=== PATIENT | male | born 1965 | race African-American/Black ===

== ENCOUNTER 2020-12-16 12:42 | Inpatient (IN) ==
[2020-12-16 16:58] LABS: Bilirubin,Urine Small mg/dL (Negative); Blood, Urine Negative (Negative); Glucose,Urine (UA) Negative (Negative); Hyaline Casts,Urine 36 /LPF (0-3); Ketones,Urine 5 mg/dL (Negative); Mucus,Urine Many /LPF (Occasional); Nitrite,Urine Negative (Negative); Protein,Urine 100 MG/DL; RBC,Urine 3 /HPF (0-4); Urine Appearance Slightly Hazy (Clear); Urine Color Amber (Yellow); Urine Specific Gravity 1.045 (1.001-1.035)
[2020-12-16 17:06] LABS: Basophils % 0.3 % (0.0-0.8); Hematocrit 50.5 VOL% (42.0-52.0); Hemoglobin 16.4 GM/DL (14.0-18.0); Immature Granulocytes % 0.5 %; Immature Granulocytes Absolute 0.07 #; Lymphocytes # 1.1 10*3/uL (1.4-4.0); Lymphocytes % 7.5 % (21.2-54.2); Mean Corpuscular HGB Conc 32.5 GM/DL (32-36); Mean Corpuscular Volume 81.6 FL (87-102); Mean Platelet Volume 10.1 FL (9.6-12.0); Monocytes % 6.2 % (1.7-12.7); Neutrophils % 85.5 % (38.7-73.9); Platelet Count 269 T/CUMM (130-400); Red Blood Count 6.19 MC/CUMM (3.8-5.5); Red Cell Distribution Width 15.6 % (9.3-17.3); White Blood Count 15.2 T/CUMM (4-12)
[2020-12-16 17:29] LABS: Albumin 4.2 G/DL (3.4-5.0); Bilirubin,Total 1.4 MG/DL (0.2-1.0); Potassium 4.4 MMOL/L (3.5-5.1); Total Protein 9.4 G/DL (6.4-8.2)
[2020-12-16] MEDS ORDERED: SODIUM CHLORIDE 0.9% 1,000 ML IV STA (18:32)
[2020-12-16] MEDS ORDERED: ONDANSETRON 4 MG/2 ML VIAL IV STA (18:32)
[2020-12-16] MEDS ORDERED: PANTOPRAZOLE 40 MG VIAL IV STA (18:32)
[2020-12-16] MEDS ORDERED: METOCLOPRAMIDE 10 MG/2 ML VIAL IV STA (18:32)
[2020-12-16] MEDS ORDERED: MORPHINE 4 MG/1 ML VIAL IV STA (18:35)
[2020-12-16] MEDS ORDERED: ACETAMINOPHEN 325 MG TABLET PO PRN (19:06)
[2020-12-16] MEDS: LACTATED RINGERS 1,000 ML IV SCH (21:51)
[2020-12-16] MEDS: PIPERACILLIN/TAZOBACTAM 3,375 MG in SODIUM CHLORIDE 0.9% 100 ML IV SCH (21:53)
[2020-12-17] MEDS: PIPERACILLIN/TAZOBACTAM 3,375 MG in SODIUM CHLORIDE 0.9% 100 ML IV SCH ×3 (03:53→18:30)
[2020-12-17] MEDS: LACTATED RINGERS 1,000 ML IV SCH ×3 (04:30→23:53)
[2020-12-17] MEDS: HYDROmorphone 2 MG/1 ML VIAL IV PRN ×3 (06:26→16:50)
[2020-12-17 07:03] LABS: Calcium 8.7 MG/DL (8.5-10.1); Osmolality,Calculated 282.4 MOS/KG (273-304); Potassium 3.8 MMOL/L (3.5-5.1)
[2020-12-17 07:05] LABS: Basophils # 0.1 10*3/uL (0.0-0.2); Basophils % 0.6 % (0.0-0.8); Eosinophils # 0.1 10*3/uL (0.0-0.87); Eosinophils % 0.6 % (0.00-10.9); Hematocrit 43.3 VOL% (42.0-52.0); Immature Granulocytes % 0.2 %; Immature Granulocytes Absolute 0.02 #; Lymphocytes # 1.7 10*3/uL (1.4-4.0); Lymphocytes % 20.7 % (21.2-54.2); Mean Corpuscular Volume 81.1 FL (87-102); Mean Platelet Volume 10.3 FL (9.6-12.0); Monocytes % 10.9 % (1.7-12.7); Platelet Count 231 T/CUMM (130-400); Red Blood Count 5.34 MC/CUMM (3.8-5.5); Red Cell Distribution Width 15.2 % (9.3-17.3)
[2020-12-17 07:18] LABS: Hemoglobin 14.3 GM/DL (14.0-18.0); White Blood Count 8.1 T/CUMM (4-12)
[2020-12-17] MEDS: POLYETHYLENE GLYCOL POWDER 17 GM PACK PO SCH (23:54)
[2020-12-18] MEDS: HYDROmorphone 2 MG/1 ML VIAL IV PRN ×4 (02:19→20:15)
[2020-12-18] MEDS: LACTATED RINGERS 1,000 ML IV SCH ×3 (03:27→20:27)
[2020-12-18] MEDS: PIPERACILLIN/TAZOBACTAM 3,375 MG in SODIUM CHLORIDE 0.9% 100 ML IV SCH ×3 (03:30→20:16)
[2020-12-18 07:57] LABS: Basophils % 0.4 % (0.0-0.8); Eosinophils # 0.1 10*3/uL (0.0-0.87); Eosinophils % 0.6 % (0.00-10.9); Hematocrit 44.2 VOL% (42.0-52.0); Hemoglobin 13.8 GM/DL (14.0-18.0); Immature Granulocytes % 0.3 %; Immature Granulocytes Absolute 0.03 #; Lymphocytes # 3.2 10*3/uL (1.4-4.0); Lymphocytes % 34.2 % (21.2-54.2); Mean Corpuscular HGB Conc 31.2 GM/DL (32-36); Mean Corpuscular Volume 83.9 FL (87-102); Mean Platelet Volume 9.8 FL (9.6-12.0); Monocytes % 8.8 % (1.7-12.7); Neutrophils % 55.7 % (38.7-73.9); Platelet Count 228 T/CUMM (130-400); Red Blood Count 5.27 MC/CUMM (3.8-5.5); Red Cell Distribution Width 15.1 % (9.3-17.3); White Blood Count 9.3 T/CUMM (4-12)
[2020-12-18 08:10] LABS: Osmolality,Calculated 282.3 MOS/KG (273-304); Potassium 3.6 MMOL/L (3.5-5.1)
[2020-12-18] MEDS: POLYETHYLENE GLYCOL POWDER 17 GM PACK PO SCH ×2 (08:30→20:15)
[2020-12-18] MEDS: PANTOPRAZOLE 40 MG TABLET PO SCH (08:31)
[2020-12-19] MEDS: PIPERACILLIN/TAZOBACTAM 3,375 MG in SODIUM CHLORIDE 0.9% 100 ML IV SCH ×3 (03:22→20:21)
[2020-12-19] MEDS: HYDROmorphone 2 MG/1 ML VIAL IV PRN ×4 (05:13→22:49)
[2020-12-19 06:27] LABS: Basophils % 0.4 % (0.0-0.8); Eosinophils # 0.1 10*3/uL (0.0-0.87); Hematocrit 41.8 VOL% (42.0-52.0); Hemoglobin 13.4 GM/DL (14.0-18.0); Immature Granulocytes % 0.3 %; Immature Granulocytes Absolute 0.02 #; Lymphocytes # 2.3 10*3/uL (1.4-4.0); Lymphocytes % 32.2 % (21.2-54.2); Mean Corpuscular HGB Conc 32.1 GM/DL (32-36); Mean Corpuscular Volume 81.6 FL (87-102); Mean Platelet Volume 9.6 FL (9.6-12.0); Monocytes % 9.6 % (1.7-12.7); Neutrophils % 56.5 % (38.7-73.9); Platelet Count 206 T/CUMM (130-400); Red Blood Count 5.12 MC/CUMM (3.8-5.5); Red Cell Distribution Width 14.7 % (9.3-17.3); White Blood Count 7.1 T/CUMM (4-12)
[2020-12-19 06:44] LABS: Calcium 8.8 MG/DL (8.5-10.1); Osmolality,Calculated 273.8 MOS/KG (273-304); Potassium 3.5 MMOL/L (3.5-5.1)
[2020-12-19] MEDS: POLYETHYLENE GLYCOL POWDER 17 GM PACK PO SCH ×2 (09:54→20:21)
[2020-12-19] MEDS: PANTOPRAZOLE 40 MG TABLET PO SCH (09:54)
[2020-12-19] MEDS: LACTATED RINGERS 1,000 ML IV SCH ×2 (15:15→17:41)
[2020-12-20] MEDS: LACTATED RINGERS 1,000 ML IV SCH ×3 (00:02→12:56)
[2020-12-20] MEDS: PIPERACILLIN/TAZOBACTAM 3,375 MG in SODIUM CHLORIDE 0.9% 100 ML IV SCH ×3 (03:47→19:57)
[2020-12-20] MEDS: ONDANSETRON 4 MG/2 ML VIAL IV PRN (04:34)
[2020-12-20] MEDS: HYDROmorphone 2 MG/1 ML VIAL IV PRN ×4 (04:35→20:06)
[2020-12-20 05:56] LABS: Basophils % 0.5 % (0.0-0.8); Eosinophils % 0.3 % (0.00-10.9); Hematocrit 42.2 VOL% (42.0-52.0); Hemoglobin 14.1 GM/DL (14.0-18.0); Immature Granulocytes % 0.3 %; Immature Granulocytes Absolute 0.02 #; Lymphocytes # 0.7 10*3/uL (1.4-4.0); Lymphocytes % 12.1 % (21.2-54.2); Mean Corpuscular HGB Conc 33.4 GM/DL (32-36); Mean Corpuscular Volume 80.7 FL (87-102); Monocytes % 12.3 % (1.7-12.7); Neutrophils % 74.5 % (38.7-73.9); Platelet Count 230 T/CUMM (130-400); Red Blood Count 5.23 MC/CUMM (3.8-5.5); Red Cell Distribution Width 14.4 % (9.3-17.3)
[2020-12-20 06:17] LABS: Calcium 9.1 MG/DL (8.5-10.1); Osmolality,Calculated 268.2 MOS/KG (273-304); Potassium 3.9 MMOL/L (3.5-5.1)
[2020-12-20 07:03] LABS: Band Neutrophils 9 % (0-10); Hypochromasia 1+; Lymphocytes 12 % (20-55); Segmented Neutrophils 68 % (50-85); Total Cells Counted 100
[2020-12-20 07:04] LABS: Microcytosis 1+; Platelet Estimate Normal
[2020-12-20] MEDS ORDERED: ATORVASTATIN 20 MG TABLET PO SCH (09:00)
[2020-12-20] MEDS ORDERED: AMLODIPINE ATORVASTATIN PO SCH (09:00)
[2020-12-20] MEDS: POLYETHYLENE GLYCOL POWDER 17 GM PACK PO SCH ×2 (09:38→20:06)
[2020-12-20] MEDS: PANTOPRAZOLE 40 MG TABLET PO SCH (09:39)
[2020-12-20] MEDS: amLODIPine 10 MG TABLET PO SCH (09:40)
[2020-12-20] MEDS: ATORVASTATIN 10 MG TABLET PO SCH (09:41)
[2020-12-21] MEDS: HYDROmorphone 2 MG/1 ML VIAL IV PRN ×5 (00:09→21:47)
[2020-12-21] MEDS: LACTATED RINGERS 1,000 ML IV SCH ×3 (02:31→21:51)
[2020-12-21] MEDS: PIPERACILLIN/TAZOBACTAM 3,375 MG in SODIUM CHLORIDE 0.9% 100 ML IV SCH ×3 (03:34→21:37)
[2020-12-21] MEDS: ONDANSETRON 4 MG/2 ML VIAL IV PRN ×2 (04:26→12:39)
[2020-12-21] MEDS: ATORVASTATIN 10 MG TABLET PO SCH (09:23)
[2020-12-21] MEDS: PANTOPRAZOLE 40 MG TABLET PO SCH (09:23)
[2020-12-21] MEDS: POLYETHYLENE GLYCOL POWDER 17 GM PACK PO SCH ×2 (09:23→21:56)
[2020-12-21] MEDS: amLODIPine 10 MG TABLET PO SCH (09:23)
[2020-12-22] MEDS: LACTATED RINGERS 1,000 ML IV SCH ×4 (01:10→22:42)
[2020-12-22] MEDS: PIPERACILLIN/TAZOBACTAM 3,375 MG in SODIUM CHLORIDE 0.9% 100 ML IV SCH ×3 (03:27→20:26)
[2020-12-22] MEDS ORDERED: propofoL 200 MG/20 ML VIAL IV ONE ×2 (07:07→08:43)
[2020-12-22] MEDS ORDERED: LIDOCAINE 2% 5 ML VIAL ONE (07:07)
[2020-12-22] MEDS ORDERED: ROCURONIUM 50 MG/5 ML VIAL IV ONE ×2 (07:08→09:23)
[2020-12-22] MEDS ORDERED: LACTATED RINGERS 1,000 ML IV ONE (07:10)
[2020-12-22] MEDS ORDERED: SEVOFLURANE 1 UNIT/15 MINUTE INH ONE ×2 (07:10→10:11)
[2020-12-22] MEDS ORDERED: MIDAZOLAM 2 MG/2 ML VIAL ONE (07:11)
[2020-12-22] MEDS ORDERED: SUFentanil 50 MCG/ML AMP ONE (07:11)
[2020-12-22] MEDS ORDERED: DEXAMETHASONE 4 MG/1 ML VIAL ONE ×3 (07:12→08:19)
[2020-12-22] MEDS ORDERED: ROPIVACAINE 0.5% 30 ML VIAL ONE (07:12)
[2020-12-22] MEDS ORDERED: ONDANSETRON 4 MG/2 ML VIAL ONE ×2 (08:19)
[2020-12-22] MEDS ORDERED: KETOROLAC 30 MG/1 ML VIAL ONE (08:19)
[2020-12-22] MEDS ORDERED: ALBUMIN 5% 25.0 GM/500 ML VIAL IV ONE (08:32)
[2020-12-22] MEDS ORDERED: GLYCOPYRROLATE 0.4 MG/2 ML VIAL ONE (08:54)
[2020-12-22] MEDS ORDERED: PHENYLEPHRINE 1 MG/10 ML SYRINGE IV ONE (08:55)
[2020-12-22] MEDS ORDERED: NEOSTIGMINE 10 MG/10 ML VIAL ONE (08:55)
[2020-12-22] MEDS ORDERED: ACETAMINOPHEN INJ 1,000 MG/100 ML VIAL IV ONE (08:57)
[2020-12-22] MEDS ORDERED: METOPROLOL TARTRATE 5 MG/5 ML VIAL IV ONE (09:05)
[2020-12-22] MEDS ORDERED: ALBUTEROL/IPRATROPIUM 3 ML NEB RESP TX PRN (10:09)
[2020-12-22 10:31] LABS: Bilirubin,Urine Negative (Negative); Blood, Urine Negative (Negative); Glucose,Urine (UA) Negative (Negative); Ketones,Urine 80 mg/dL (Negative); Mucus,Urine Occasional /LPF (Occasional); Nitrite,Urine Negative (Negative); Protein,Urine 100 MG/DL; RBC,Urine 6 /HPF (0-4); Urine Appearance CLEAR (Clear); Urine Color Yellow (Yellow)
[2020-12-22] MEDS: POLYETHYLENE GLYCOL POWDER 17 GM PACK PO SCH ×2 (11:28→22:43)
[2020-12-22] MEDS: ATORVASTATIN 10 MG TABLET PO SCH (11:28)
[2020-12-22] MEDS: amLODIPine 10 MG TABLET PO SCH (11:28)
[2020-12-22] MEDS: KETOROLAC 15 MG/1 ML VIAL IV SCH ×2 (11:40→17:44)
[2020-12-22] MEDS: PANTOPRAZOLE 40 MG TABLET PO SCH (12:08)
[2020-12-22] MEDS: HYDROmorphone 2 MG/1 ML VIAL IV PRN ×3 (13:22→22:58)
[2020-12-23] MEDS: KETOROLAC 15 MG/1 ML VIAL IV SCH ×4 (00:29→17:09)
[2020-12-23] MEDS: HYDROmorphone 2 MG/1 ML VIAL IV PRN ×6 (01:08→22:50)
[2020-12-23] MEDS: PIPERACILLIN/TAZOBACTAM 3,375 MG in SODIUM CHLORIDE 0.9% 100 ML IV SCH ×3 (05:13→20:12)
[2020-12-23 05:51] LABS: Basophils % 0.5 % (0.0-0.8); Eosinophils % 0.1 % (0.00-10.9); Hematocrit 37.4 VOL% (42.0-52.0); Hemoglobin 12.3 GM/DL (14.0-18.0); Immature Granulocytes % 0.8 %; Immature Granulocytes Absolute 0.06 #; Lymphocytes # 2.1 10*3/uL (1.4-4.0); Lymphocytes % 26.8 % (21.2-54.2); Mean Corpuscular HGB Conc 32.9 GM/DL (32-36); Mean Corpuscular Volume 79.6 FL (87-102); Mean Platelet Volume 10.4 FL (9.6-12.0); Monocytes % 13.1 % (1.7-12.7); Neutrophils % 58.7 % (38.7-73.9); Platelet Count 269 T/CUMM (130-400); Red Cell Distribution Width 14.2 % (9.3-17.3); White Blood Count 7.9 T/CUMM (4-12)
[2020-12-23 06:11] LABS: Calcium 8.3 MG/DL (8.5-10.1); Osmolality,Calculated 278.7 MOS/KG (273-304); Potassium 4.1 MMOL/L (3.5-5.1)
[2020-12-23 06:21] LABS: Band Neutrophils 4 % (0-10); Hypochromasia 1+; Lymphocytes 23 % (20-55); Microcytosis 1+; Platelet Estimate Adequate; Segmented Neutrophils 58 % (50-85); Total Cells Counted 100
[2020-12-23] MEDS: ATORVASTATIN 10 MG TABLET PO SCH ×2 (09:23→09:55)
[2020-12-23] MEDS: amLODIPine 10 MG TABLET PO SCH ×2 (09:23→09:55)
[2020-12-23] MEDS: POLYETHYLENE GLYCOL POWDER 17 GM PACK PO SCH ×3 (09:23→22:37)
[2020-12-23] MEDS: PANTOPRAZOLE 40 MG VIAL IV SCH (09:23)
[2020-12-23] MEDS: LACTATED RINGERS 1,000 ML IV SCH ×2 (09:36→17:40)
[2020-12-23] MEDS ORDERED: ENOXAPARIN 40 MG/0.4 ML SYRINGE SUBCUT SCH (12:00)
[2020-12-24] MEDS: KETOROLAC 15 MG/1 ML VIAL IV SCH ×4 (00:56→17:15)
[2020-12-24] MEDS: PIPERACILLIN/TAZOBACTAM 3,375 MG in SODIUM CHLORIDE 0.9% 100 ML IV SCH ×3 (04:26→21:10)
[2020-12-24] MEDS: LACTATED RINGERS 1,000 ML IV SCH ×2 (04:35→11:32)
[2020-12-24] MEDS: HYDROmorphone 2 MG/1 ML VIAL IV PRN ×4 (04:56→22:50)
[2020-12-24] MEDS: PANTOPRAZOLE 40 MG VIAL IV SCH (09:05)
[2020-12-24] MEDS: POLYETHYLENE GLYCOL POWDER 17 GM PACK PO SCH ×2 (11:30→21:10)
[2020-12-24] MEDS: ATORVASTATIN 10 MG TABLET PO SCH (11:30)
[2020-12-24] MEDS: amLODIPine 10 MG TABLET PO SCH (11:31)
[2020-12-24] MEDS: ENOXAPARIN 40 MG/0.4 ML SYRINGE SUBCUT SCH (12:08)
[2020-12-24] MEDS: ONDANSETRON 4 MG/2 ML VIAL IV PRN (22:56)
[2020-12-25] MEDS: KETOROLAC 15 MG/1 ML VIAL IV SCH ×2 (00:40→05:54)
[2020-12-25] MEDS: LACTATED RINGERS 1,000 ML IV SCH ×4 (00:42→21:41)
[2020-12-25] MEDS: PIPERACILLIN/TAZOBACTAM 3,375 MG in SODIUM CHLORIDE 0.9% 100 ML IV SCH ×3 (03:13→21:15)
[2020-12-25] MEDS: POLYETHYLENE GLYCOL POWDER 17 GM PACK PO SCH ×2 (11:25→22:09)
[2020-12-25] MEDS: PANTOPRAZOLE 40 MG VIAL IV SCH (11:25)
[2020-12-25] MEDS: amLODIPine 10 MG TABLET PO SCH (11:25)
[2020-12-25] MEDS: ATORVASTATIN 10 MG TABLET PO SCH (11:25)
[2020-12-25] MEDS: ENOXAPARIN 40 MG/0.4 ML SYRINGE SUBCUT SCH (14:07)
[2020-12-25] MEDS: ONDANSETRON 4 MG/2 ML VIAL IV PRN ×2 (17:52→21:11)
[2020-12-25] MEDS: HYDROmorphone 2 MG/1 ML VIAL IV PRN ×2 (17:52→21:11)
[2020-12-26] MEDS: HYDROmorphone 2 MG/1 ML VIAL IV PRN ×2 (01:07→03:32)
[2020-12-26] MEDS: PIPERACILLIN/TAZOBACTAM 3,375 MG in SODIUM CHLORIDE 0.9% 100 ML IV SCH ×2 (03:25→10:48)
[2020-12-26] MEDS: LACTATED RINGERS 1,000 ML IV SCH ×2 (03:39→08:35)
[2020-12-26 07:54] VITALS: BP 122/69
[2020-12-26] MEDS: PANTOPRAZOLE 40 MG VIAL IV SCH (08:29)
[2020-12-26] MEDS: amLODIPine 10 MG TABLET PO SCH (08:29)
[2020-12-26] MEDS: ATORVASTATIN 10 MG TABLET PO SCH (08:29)
[2020-12-26] MEDS: POLYETHYLENE GLYCOL POWDER 17 GM PACK PO SCH (08:35)
== END 2020-12-26 11:45 | disposition home health service (06) | DRG 330 ==
LOC: N.ED 12:42 → N.EDINP 19:27 → N.3E 21:03
PROVIDERS: ADMIT Student in an Organized Health Care Education/Training Program; ATTEND Surgery